=== PATIENT | male | born 1945 | race Caucasian/White ===

== ENCOUNTER 2018-02-11 07:34 | Inpatient (IN) | payer MEDICARE, BC ==
[~2018-02-11] VITALS: Ht 177.8 cm; Wt 132.4 kg
[2018-02-11] VITALS (7 sets, daily range): BP systolic 112–148; BP diastolic 73–87
[2018-02-11] MEDS ORDERED: ATIVAN0.5 MG PO (07:46)
[2018-02-11] MEDS ORDERED: NORVASC5 MG PO (07:47)
[2018-02-11] MEDS ORDERED: LIPITOR10 MG PO (07:47)
[2018-02-11] MEDS ORDERED: GLUCOPHAGE XR750 MG PO (07:48)
[2018-02-11 07:53] LABS: URINE BILIRUBIN NEGATIVE (Negative); URINE BLOOD TRACE (Negative); URINE CLARITY CLEAR; URINE COLOR YELLOW; URINE GLUCOSE-RANDOM NEGATIVE (Negative); URINE KETONES NEGATIVE (Negative); URINE LEUKOCYTES-REFLEX NEGATIVE (Negative); URINE NITRITE-REFLEX NEGATIVE (Negative); URINE PROTEIN NEGATIVE (Negative); URINE SPECIFIC GRAVITY 1.025 (1.005-1.030); URINE UROBILINOGEN 0.2 E.U./dl (0.2-1.0)
[2018-02-11 08:03] LABS: ABSOLUTE EOSINOPHILS 0.1 thou/uL (0.0-0.7); ABSOLUTE LYMPHOCYTES 1.9 thou/uL (0.8-5.3); ABSOLUTE MONOCYTES 0.3 thou/uL (0.0-1.2); ABSOLUTE NEUTROPHILS 2.7 thou/uL (1.6-8.1); BASOPHILS 0.6 %; EOSINOPHILS 1.4 %; HEMATOCRIT 43.1 % (42.0-52.0); HEMOGLOBIN 14.4 gm/dL (14.0-18.0); LYMPHOCYTES 37.3 %; MCH 29.5 pg (26.0-34.0); MCHC 33.4 g/dL (28.0-37.0); MCV 88.4 fL (80.0-100.0); MONOCYTES 6.3 %; MPV 8.6 fl. (7.2-11.1); NUCLEATED RBCS 0 /100WBC; PLATELET COUNT* 172 thou/uL (150-400); POLYS 54.4 %; RBC 4.87 mil/uL (4.50-6.00); RDW-CV 16.2 % (10.5-14.5)
[2018-02-11 08:08] LABS: ANION GAP 7 mmol/L (7-16); BUN 24 mg/dL (7-18); CALCIUM 8.3 mg/dL (8.5-10.1); CHLORIDE 105 mmol/L (98-107); CO2 26 mmol/L (21-32); CREATININE 0.9 mg/dL (0.6-1.3); GLUCOSE 177 mg/dL (70-99); POTASSIUM 3.8 mmol/L (3.5-5.1); SODIUM 138 mmol/L (136-145)
[2018-02-11 08:14] LABS: ALBUMIN 3.7 g/dL (3.4-5.0); ALKALINE PHOSPHATASE 79 U/L (46-116); LIPASE 151 U/L (73-393); MAGNESIUM 1.9 mg/dL (1.8-2.4); SGOT 38 U/L (15-37); SGPT 67 U/L (30-65); TOTAL BILIRUBIN 0.6 mg/dL (<0.1-1.0); TOTAL PROTEIN 7.2 g/dL (6.4-8.2); TROPONIN-I LEVEL <0.06 ng/mL (<0.06)
[2018-02-11 08:16] LABS: APTT 25.6 Seconds (25.0-31.3); PROTIME 10.6 Seconds (9.20-11.50)
--- NOTE | 2018-02-11 10:10 | EKG ---
[place] [address] ELECTROCARDIOGRAM REPORT Name: JAI INGRAM [place] Room: [address] ADM IN M.R.#: [id number] Admission: 02/11/18 Attend Phys: Annette Lucero Discharge: Date of : 49 Report #: [id number] THIS REPORT FOR: //name// [facility] ED Test Date: 2018-02-11 Test Time: 07:43:30 Pat Name: JAI INGRAM Department: Room: [facility] Gender: M Physical Therapist: JOSE ANTONIO : 1945 Requested By: Wyatt Elder Order Number: [id number] MD: Zen Elam Measurements Intervals [place] Rate: 103 P: TN: QRS: -47 QRSD: 116 T: 62 QT: 380 QTc: 498 Interpretive Statements sinus rhythm with ventricular couplets pac Ventricular bigeminy Inferior infarct, old No previous ECG available for comparison Electronically Signed On 02-11-2018 10:10:23 CDT by Zen Elam [email or web address] <ELECTRONICALLY SIGNED> By: Zen Elam MD, [facility] 02/11/18 1010 0743 0743 Zen Elam MD, [facility] /EPI
[2018-02-11 13:10] LABS: CHOLESTEROL 100 mg/dL (<200); HDL CHOLESTEROL 38 mg/dL (>40); LDL CHOLESTEROL 52 mg/dL (<100); SERUM ASSESSMENT Clear; TC:HDL 2.6 Ratio (Not establshd); TRIGLYCERIDE 53 mg/dL (<150); VLDL 11 mg/dL (<40)
--- NOTE | 2018-02-11 16:44 | 2DMMODE ---
[place] [address] 2 D/M-MODE ECHOCARDIOGRAM Name: JAI INGRAM MARGARET Room: [address] IN [facility]#: [id number] Admission: 02/11/18 Attend Phys: Osmani Herrera Discharge: Date of : 49 Date of Service: 02/11/18 1644 Report #: [id number] THIS REPORT FOR: //name// APPROVED REPORT Study performed: 02/11/2018 14:57:42 EXAM: Comprehensive 2D, Doppler, and color-flow Echocardiogram Patient Location: In-Patient Room #: [facility] Status: routine BSA: 2.46 HR: 84 bpm BP: 127/75 mmHg Rhythm: NSR Other Information Study Quality: Good Indications Abnormal ECG Elevated BP 2D Dimensions LVEF(%): 24.22 (>50%) IVSd: 13.92 (7-11mm) LVOT Diam: 22.03 (18-24mm) LVDd: 55.92 mm PWd: 12.02 (7-11mm) Ascending Ao: 33.57 (22-36mm) LVDs: 49.60 (25-40mm) Aortic Root: 40.11 mm Morrow's LVEF: 24.22 % Volumes Left Atrial Volume (Systole) LA ESV Index: 53.00 mL/m2 Aortic Valve AoV Peak Edgardo.: 1.26 m/s AO Peak Gr.: 6.34 mmHg LVOT Max P.81 mmHg AO Mean Gr.: 3.57 mmHg LVOT Mean P.81 mmHg LVOT Max V: 0.98 m/s AO V2 VTI: 24.70 cm LVOT Mean V: 0.62 m/s SARAHI (VTI): 3.16 cm2 LVOT V1 VTI: 20.44 [place] [address] 2 D/M-MODE ECHOCARDIOGRAM Name: JAI INGRAM POTOSI Room: [address] IN .R.#: [id number] Admission: 02/11/18 Attend Phys: Osmani Herrera Discharge: Date of : 49 Date of Service: 02/11/18 1644 Report #: [id number] E/A Ratio: 1.16 MV Decel. Time: 169.90 ms MV E Max Edgardo.: 1.09 m/s MV PHT: 49.27 ms MVA (PHT): 4.47 cm2 TDI E/Lateral E': 10.90 Lateral E' Edgardo.: 0.10 m/s Pulmonary Valve PV Peak Edgardo.: 0.96 m/s PV Peak Gr.: 3.66 mmHg Tricuspid Valve RAP Estimate: 5.00 mmHg TR Peak Gr.: 30.61 mmHg RVSP: 35.00 mmHg PA Pressure: 35.00 mmHg Left Ventricle The left ventricle is normal size. There is global hypokinesis of the left ventricle. Mild concentric left ventricular hypertrophy. Left ventricular systolic function is severely decreased. LVEF is 25-30%. The left ventricular diastolic function is normal. Right Ventricle The right ventricle is normal size. The right ventricular systolic function is normal. Atria Left atrium is severely dilated. The right atrium size is normal. Aortic Valve The aortic valve is normal in structure. Trace aortic regurgitation. There is no aortic valvular stenosis. Mitral Valve The mitral valve is normal in structure. Mild mitral regurgitation. No evidence of mitral valve stenosis. Tricuspid Valve The tricuspid valve is normal in structure. Mild tricuspid regurgitation. Mild pulmonary hypertension. Pulmonic Valve The pulmonary valve is normal in structure. [place] [address] 2 D/M-MODE ECHOCARDIOGRAM Name: JAI INGRAM MARGARET Room: [address] IN [facility]#: [id number] Admission: 02/11/18 Attend Phys: Osmani Herrera Discharge: Date of : 49 Date of Service: 02/11/18 1644 Report #: [id number] valvular regurgitation. Great Vessels The aortic root is normal in size. IVC is normal in size and collapses with >50% inspiration Pericardium There is no pericardial effusion. <Conclusion> Mild concentric left ventricular hypertrophy. LVEF is 25-30%. Left atrium is severely dilated. Mild mitral regurgitation. Mild tricuspid regurgitation. Mild pulmonary hypertension. <ELECTRONICALLY SIGNED> By: Zen Elam MD, FACC 02/11/184 43 43 Zen Elam MD, FACC /INF
[2018-02-12] VITALS (17 sets, daily range): BP systolic 101–153; BP diastolic 56–91
[2018-02-12 10:34] LABS: CALCIUM 8.5 mg/dL (8.5-10.1); CREATININE 0.9 mg/dL (0.6-1.3); MAGNESIUM 2.1 mg/dL (1.8-2.4)
[2018-02-13] VITALS (7 sets, daily range): BP systolic 102–132; BP diastolic 57–90
[2018-02-14] VITALS: BP 97/56
[2018-02-14 04:00] VITALS: BP 118/56
[2018-02-14 12:00] VITALS: BP 107/66
[2018-02-14 16:33] VITALS: BP 106/77
[2018-02-14 20:00] VITALS: BP 121/80
[2018-02-15] VITALS: BP 102/64
[2018-02-15 04:00] VITALS: BP 112/77
[2018-02-15 05:13] LABS: HEMATOCRIT 41.5 % (42.0-52.0); HEMOGLOBIN 13.8 gm/dL (14.0-18.0); MCH 29.5 pg (26.0-34.0); MCHC 33.1 g/dL (28.0-37.0); MCV 88.9 fL (80.0-100.0); MPV 8.5 fl. (7.2-11.1); RBC 4.67 mil/uL (4.50-6.00); WBC 6.4 thou/uL (4.0-11.0)
[2018-02-15 05:43] LABS: ALBUMIN 3.4 g/dL (3.4-5.0); CALCIUM 8.4 mg/dL (8.5-10.1); TOTAL BILIRUBIN 0.7 mg/dL (<0.1-1.0); TOTAL PROTEIN 6.3 g/dL (6.4-8.2)
[2018-02-15 08:07] VITALS: BP 125/78
--- NOTE | 2018-02-15 13:00 | CON ---
[address] [address] CONSULTATION Name: INGRAMJAI MARTIN MARGARET Room: [address] ADM IN M.R.#: [id number] Admission: 02/11/18 Attend Phys: Annette Lucero Discharge: Date of : 49 Report #: [id number] THIS REPORT FOR: //name// CC: Yary Herrera DATE OF SERVICE: 02/11/2018 CARDIOLOGY CONSULTATION HISTORY OF PRESENT ILLNESS: The patient is a 72-year-old single white male who I was asked to see in the hospital today after he was noted to have an episode of a wide complex tachycardia. The patient has no previous history of heart disease. He states he had a stress test years ago. He has never seen a cambering machine operator. He does go for walks every day, but does not exercise on a regular basis. He states he was doing well until yesterday. He had a brief episode of what he felt warm all over. It lasted a few seconds, resolved. Today, he was sitting in a coffee shop when he suddenly felt warm and then slumped in his chair. According to witnesses, he was unresponsive for a brief period of time. He then awakened. He denied any seizure activity, biting his tongue. Denied any chest pain, palpitations. He was taken by ambulance to [place] [place] and admitted. He denies history of exertional chest pain, dyspnea on exertion, previous syncope. He has had no recent vomiting, diarrhea or bleeding. PAST MEDICAL HISTORY: He has had arthroscopy on his knee. He has a history of hypertension, diabetes, hyperlipidemia. MEDICATIONS: Consists of Zocor, metformin, Ativan for anxiety, Norvasc. ALLERGIES: HE HAS INTOLERANCES TO CRESTOR, LIPITOR AND SULFA DRUGS. FAMILY HISTORY: His father of heart attack. 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 No smoking. Rarely drinks alcohol. He does have a few cups of coffee a day. He is from [place], [place]. REVIEW OF SYSTEMS: He has had no history of stroke. He does have sleep apnea, he uses CPAP. He is also overweight, standing 5 feet 8 inches and weighing 250 pounds. He has no history of asthma. No history of peptic ulcer disease, liver disease, kidney disease, cancer or chronic skin condition. PHYSICAL EXAMINATION: GENERAL: Revealed a large, elderly male who appeared in no [place] [address] CONSULTATION Name: JAI INGRAM [place] Room: [address] IN [facility]#: [id number] Admission: 02/11/18 Attend Phys: Annette Lucero Discharge: Date of : 49 Report #: [id number]. VITAL SIGNS: He had a blood pressure of 120/70, pulse 80. He is afebrile. HEENT: He is anicteric. Conjunctivae pink. Mucous membranes moist. NECK: Neck veins nondistended. No carotid bruits heard. NECK: Supple. CHEST: Clear to auscultation. CARDIOVASCULAR: Regular rate and rhythm. No significant murmur. ABDOMEN: Obese, soft, nontender. EXTREMITIES: Had no edema. Dorsalis pedis pulse 3+ bilaterally. SKIN: Warm, dry. NEUROLOGIC: Nonfocal. DIAGNOSTIC DATA: His ECG on admission showed a sinus rhythm, occasional PVCs including ventricular couplets. There was no ST or T-wave change noted on the monitor. He continued to have occasional PVCs including up to 8-beat runs of wide complex tachycardia consistent with nonsustained ventricular tachycardia. LABORATORY DATA: Sodium 138, potassium 3.8, creatinine 0.9, glucose 177. Liver function studies normal. Magnesium 1.9. Troponin 0.06. White blood cell count 5.0, hemoglobin 14.4. Urinalysis, trace blood, negative leukocytes. He had a chest x-ray in the Emergency Room today that showed mild cardiomegaly, otherwise clear lung awan. CT scan of the head without contrast in the Emergency Room showed atrophy, no acute process. IMPRESSION AND RECOMMENDATIONS: 1. Nonsustained ventricular tachycardia. I would recommend cardiac catheterization to rule out ischemia. Recommend echocardiogram to assess for cardiomyopathy. 2. Syncope. Suspect related to ventricular tachycardia. 3. Hypertension. The patient has been on calcium vikas. 4. Diabetes. 5. Hyperlipidemia. The patient is on a statin drug. 6. Sleep apnea. 7. Obesity. <ELECTRONICALLY SIGNED> By: Prosper Reyes MD, FACC 02/15/18 1300 1237 Daimee Elam MD, FACC /nt
[2018-02-15 13:17] VITALS: BP 118/70
--- NOTE | 2018-02-15 16:28 | CARD ---
[address] [address] CARDIAC CATH REPORT Name: JAI INGRAM MARGARET Room: [address] IN M.R.#: [id number] Admission: 02/11/18 Attend Phys: Annette Lucero Discharge: 02/15/18 Date of : 49 Report #: [id number] THIS REPORT FOR: //name// APPROVED REPORT Study performed: 02/12/2018 13:21:12 Patient Details Patient Status: In-Patient Room #: 212 The patient is a 72 year-old male Event Personnel Prosper Reyes Svp Chief Marketing Officer, Isamar Kidd RN Records Associate, Vi Andrews, Juan R Louie (R) Scrub Procedures Performed Art Access - R radial artery , Selective Right and Left Coronary Angiography, Left Heart Catheterization Indication 72-year-old white male with cardiomyopathy and ventricular tachycardia. Procedure Narrative The patient was brought electively to the Cardiac Catheterization Laboratory and was prepped and draped in a sterile manner. The right wrist was infiltrated with 2% Lidocaine subcutaneous anesthesia. A Slender Glidesheath sheath was inserted into the right radial artery. Coronary angiography was performed using coronary diagnostic catheters. The right coronary system was accessed and visualized with a DCR: [place] 4.0 [id number] 6fr catheter. The left coronary system was accessed and visualized with a DCR: [place] 4.0 5fr catheter. The left ventricle was accessed and visualized with a PC: Pig 6fr catheter. Left ventricular/Aortic Valve gradient assessed via catheter pullback. Intraoperative Conscious Sedation Sedation start time: 14:22 Case end Time: 14:43 Fentanyl 50 mcg Versed 1 mg Fluoro Time: 10 minutes Dose: DAP 404352 cGycm2 1826.98 mGy Contrast Type and Amount: Omnipaque [address] [place] [address] CARDIAC CATH REPORT Name: JAI INGRAM [place] Room: [address] IN [facility].#: [id number] Admission: 02/11/18 Attend Phys: Annette Lucero Discharge: 02/15/18 Date of : 49 Report #: [id number] Coronary Angiography The patient's coronary anatomy is right dominant. Diagnostic Cath Left Main Normal. LAD Normal. Diagonal 1 Normal. Diagonal 2 Normal. Circumflex Normal. OM1 30% narrowing distally. Right Coronary Mildly ectatic without significant narrowing. R PDA Normal. RPLV Normal. Left Ventriculography Left Ventriculography was not performed. Hemodynamics The aortic pressure is 115/63 mmHg with a mean of mmHg. The left ventricular pressure is 100/2 mmHg with a mean of mmHg. The left ventricular end diastolic pressure is 10 mmHg. There was no gradient across the aortic valve upon pullback. Conclusion 1. Minimal atherosclerotic plaquing as outlined above. 2. Mildly ectatic right coronary artery. 3. Normal left ventricular end-diastolic pressure. Recommendations 1. Continue current medical management. <ELECTRONICALLY SIGNED> By: Prosper Reyes MD, FACC 02/15/18 162 26 162Micvaleri Reyes MD, FACC /INF
[2018-02-15] MEDS ORDERED: PACERONE 200 M200 M1 PO (16:50)
[2018-02-15] MEDS ORDERED: ASPIRIN325 PO (16:54)
[2018-02-15] MEDS ORDERED: CARVEDILOL3.125 MG PO (16:55)
[2018-02-15] MEDS ORDERED: SPIRONOLACTONE25 M1 PO (16:58)
--- NOTE | 2018-02-20 09:32 | EEG ---
[address] [address] EEG STUDY REPORT Name: JAI INGRAM MARGARET Room: [address] IN M.R.#: [id number] Admission: 02/11/18 Attend Phys: Annette Lucero Discharge: 02/15/18 Date of : 49 Report #: [id number] THIS REPORT FOR: //name// CC: Ahmad Misti Herrera DATE OF SERVICE: 02/15/2018 This patient is being evaluated for syncope. EEG was done by placing the electrodes by standard 10-20 system of electrode placement. Both referential and sequential montages were used for recording. Background activity in this patient's EEG is about 10 Hz and 40 microvolts. The patient went to sleep that is associated with bilaterally symmetrical sleep spindle and vertex sharp waves. Photic stimulation is unremarkable. Throughout the record, no active epileptiform activity was noticed. IMPRESSION: This patient's EEG is within normal limit. Thank you very much for this referral. <ELECTRONICALLY SIGNED> By: Radhames Garcia MD 02/20/18 0932 1800 1808Radhames Garcia MD /nt
== END 2018-02-15 17:45 | disposition home or self-care (01) | DRG 286 ==
LOC: M.ERS 07:34 → M.TBA-ER 08:50 → M.2W 08:50 → M.ERS 09:19 → M.2W 09:28
PROVIDERS: Family Medicine; Internal Medicine; Internal Medicine Cardiovascular Disease; ADMIT Internal Medicine
PROC: B2111ZZ Fluoroscopy of Multiple Coronary Arteries using Low Osmolar Contrast (ICD-10-PCS; principal; 2018-02-15)
PROC: 4A023N7 Measurement of Cardiac Sampling and Pressure, Left Heart, Percutaneous Approach (ICD-10-PCS; principal; 2018-02-15)
DX: I47.2 Ventricular tachycardia (principal); I50.23 Acute on chronic systolic (congestive) heart failure; I42.9 Cardiomyopathy, unspecified; Z68.41 Body mass index [BMI] 40.0-44.9, adult; I11.0 Hypertensive heart disease with heart failure; E11.9 Type 2 diabetes mellitus without complications; E78.5 Hyperlipidemia, unspecified; G47.00 Insomnia, unspecified; G47.33 Obstructive sleep apnea (adult) (pediatric); E66.01 Morbid (severe) obesity due to excess calories; Z88.2 Allergy status to sulfonamides; Z88.8 Allergy status to other drugs, medicaments and biological substances; Z82.49 Family history of ischemic heart disease and other diseases of the circulatory system; Z79.899 Other long term (current) drug therapy

== ENCOUNTER 2019-01-22 09:48 | Emergency (ER) | payer MEDICARE, BC ==
[~2019-01-22] VITALS: Ht 180.3 cm; Wt 129.3 kg
[~2019-01-22 09:48] MED LIST: ASPIRIN325 PO; ATIVAN0.5 MG PO; CARVEDILOL3.125 MG PO; GLUCOPHAGE XR750 MG PO; LIPITOR10 MG PO; NORVASC5 MG PO; PACERONE 200 M200 M1 PO; SPIRONOLACTONE25 M1 PO
[2019-01-22] MEDS ORDERED: LISINOPRIL10 MG PO (09:54)
[2019-01-22 10:22] LABS: ABSOLUTE LYMPHOCYTES 1.7 thou/uL (0.8-5.3); ABSOLUTE MONOCYTES 0.3 thou/uL (0.0-1.2); ABSOLUTE NEUTROPHILS 2.5 thou/uL (1.6-8.1); BASOPHILS 1.1 %; EOSINOPHILS 0.7 %; HEMATOCRIT 40.5 % (42.0-52.0); HEMOGLOBIN 13.8 gm/dL (14.0-18.0); LYMPHOCYTES 37.2 %; MCH 30.9 pg (26.0-34.0); MCV 90.6 fL (80.0-100.0); MONOCYTES 6.6 %; NUCLEATED RBCS 0 /100WBC; PLATELET COUNT* 174 thou/uL (150-400); POLYS 54.4 %; RBC 4.47 mil/uL (4.50-6.00); RDW-CV 16.2 % (10.5-14.5); WBC 4.5 thou/uL (4.0-11.0)
[2019-01-22 10:30] LABS: PROTIME 10.4 Seconds (9.20-11.50)
[2019-01-22 10:31] LABS: ANION GAP 10 mmol/L (7-16); BUN 26 mg/dL (7-18); CALCIUM 8.7 mg/dL (8.5-10.1); CHLORIDE 108 mmol/L (98-107); CO2 23 mmol/L (21-32); CREATININE 0.9 mg/dL (0.6-1.3); GLUCOSE 124 mg/dL (70-99); POTASSIUM 4.1 mmol/L (3.5-5.1); SODIUM 141 mmol/L (136-145)
[2019-01-22 10:42] LABS: ALBUMIN 3.4 g/dL (3.4-5.0); ALKALINE PHOSPHATASE 81 U/L (46-116); NT-PRO BRAIN NAT PEPTIDE 514 pg/mL (<300); SGOT 36 U/L (15-37); SGPT 60 U/L (30-65); TOTAL BILIRUBIN 0.5 mg/dL (<0.1-1.0); TOTAL PROTEIN 6.8 g/dL (6.4-8.2); TROPONIN-I LEVEL <0.06 ng/mL (<0.06)
[2019-01-22 12:29] LABS: TROPONIN-I LEVEL <0.06 ng/mL (<0.06)
[2019-01-22 12:41] VITALS: BP 140/76
--- NOTE | 2019-01-22 20:12 | EKG ---
[place] [address] ELECTROCARDIOGRAM REPORT Name: JAI INGRAMTON [facility] [id number] Admission: 01/22/19 Attend Phys: Discharge: 01/22/19 Date of : 49 Report #: [id number] THIS REPORT FOR: //name// [facility] ED Test Date: 2019-01-22 Test Time: 09:52:02 Pat Name: JAI INGRAM Department: Room: Gender: M Director Of Women'S Services: DIALLO : 1945 Requested By: Stanley Steel Order Number: [id number] MD: Kwabena Alfred Measurements Intervals [place] Rate: 64 P: 18 NV: 255 QRS: -47 QRSD: 124 T: 52 QT: 411 QTc: 424 Interpretive Statements Sinus rhythm Prolonged NV interval Left bundle branch block Baseline wander in lead(s) V1 Compared to ECG 02/11/2018 07:43:30 First degree AV block now present Left bundle-branch block now present Atrial premature complex(es) no longer present Ventricular premature complex(es) no longer present Myocardial infarct finding no longer present cannot exclude old inferior VT Electronically Signed On 01-22-2019 20:12:20 CDT by Kwabena Alfred [email or web address] <ELECTRONICALLY SIGNED> By: Rosangela Alfred MD, [facility] 01/22/192011 1 1 Rosangela Alfred MD, [facility] /EPI
== END 2019-01-22 13:00 | disposition home or self-care (01) ==
LOC: M.ERS 09:48
PROVIDERS: Emergency Medicine Emergency Medical Services
DX: I49.3 Ventricular premature depolarization (principal); I10 Essential (primary) hypertension; E11.9 Type 2 diabetes mellitus without complications; G47.00 Insomnia, unspecified; Z88.2 Allergy status to sulfonamides; Z88.8 Allergy status to other drugs, medicaments and biological substances

== ENCOUNTER → 2019-09-09 | Outpatient (CLI) | payer MEDICARE, BC ==
[~2019-09-09] MED LIST changes: +LISINOPRIL10 MG PO
== END ==
LOC: M.RAD 09:28
DX: I42.0 Dilated cardiomyopathy (principal); I51.7 Cardiomegaly

== ENCOUNTER 2019-10-07 18:36 | Inpatient (IN) | payer MEDICARE, BC ==
[~2019-10-07] VITALS: Ht 177.8 cm; Wt 149.6 kg
[~2019-10-07 18:36] MED LIST changes: -ATIVAN0.5 MG PO; +Ativan 0.5 MG
[2019-10-07 18:41] VITALS: BP 140/65
--- NOTE | 2019-10-07 18:55 | NUR ---
FULL NURSING REPORT GIVEN TO OPNCOMING SHIFT, REBEKAH RN WITH VERBAL UNDERSTANDING
[2019-10-07 19:00] LABS: ABSOLUTE BASOPHILS 0.1 thou/uL (0.0-0.2); ABSOLUTE LYMPHOCYTES 1.3 thou/uL (0.8-5.3); ABSOLUTE MONOCYTES 0.5 thou/uL (0.0-1.2); ABSOLUTE NEUTROPHILS 5.9 thou/uL (1.6-8.1); BASOPHILS 0.8 %; EOSINOPHILS 0.3 %; HEMATOCRIT 39.2 % (42.0-52.0); HEMOGLOBIN 13.7 gm/dL (14.0-18.0); LYMPHOCYTES 16.2 %; MCH 31.1 pg (26.0-34.0); MCHC 34.9 g/dL (28.0-37.0); MCV 89.1 fL (80.0-100.0); MONOCYTES 6.8 %; NUCLEATED RBCS 0 /100WBC; PLATELET COUNT* 189 thou/uL (150-400); POLYS 75.9 %; WBC 7.8 thou/uL (4.0-11.0)
[2019-10-07 19:22] LABS: CALCIUM 8.9 mg/dL (8.5-10.1); CREATININE 1.3 mg/dL (0.6-1.3); POTASSIUM 3.7 mmol/L (3.5-5.1)
[2019-10-07 19:33] LABS: ALBUMIN 3.2 g/dL (3.4-5.0); TOTAL PROTEIN 7.6 g/dL (6.4-8.2)
[2019-10-07 20:21] LABS: URINE BILIRUBIN NEGATIVE (Negative); URINE BLOOD 1+ (Negative); URINE CLARITY CLEAR; URINE COLOR YELLOW; URINE GLUCOSE-RANDOM NEGATIVE (Negative); URINE KETONES TRACE (Negative); URINE LEUKOCYTES-REFLEX NEGATIVE (Negative); URINE NITRITE-REFLEX NEGATIVE (Negative); URINE PROTEIN TRACE (Negative); URINE SPECIFIC GRAVITY >= 1.030 (1.005-1.030)
[2019-10-07 20:31] LABS: MUCUS 0-3 Light strn/LPF (None Seen); SQUAMOUS 0-3 Few /LPF (0-3)
[2019-10-07 20:32] LABS: BACTERIA-REFLEX 1-9 Few /HPF (None Seen); CRYSTALS None Seen /LPF (None Seen); URINE RBC 0-2 Rare /HPF (0-2); URINE WBC-REFLEX 0-5 Rare /HPF (0-5)
[2019-10-07 20:33] LABS: HYALINE CASTS 0-3 Few /LPF (None Seen)
[2019-10-07 21:45] VITALS: BP 128/66
[2019-10-07 22:30] VITALS: BP 120/77
[2019-10-07 22:52] LABS: PLATELET ESTIMATE ADEQUATE
[2019-10-07 22:53] LABS: ANISOCYTOSIS Occasional
[2019-10-07 22:54] LABS: POLYCHROMASIA Occasional
--- NOTE | 2019-10-08 05:34 | NUR ---
PT ARRIVED FROM THE ER AT 2215. A&O, ON RA. FEBRILE. IV ABX, FLUIDS GIVEN ORDERED. PT UP AD STEFFANIE. NPO FOR POSSIBLE SURGERY. PT DENIED PAIN. SLEEPING/RESTING THROUGH THE NIGHT. HOURLY ROUNDINGS COMPLETED. WILL CONTINUE TO MONITOR.
[2019-10-08 09:51] VITALS: BP 124/57
--- NOTE | 2019-10-08 10:18 | EKG ---
[place] [address] ELECTROCARDIOGRAM REPORT Name: JUAN JOSEJAI MARGARET Room: [address] ADM IN M.R.#: [id number] Admission: 10/07/19 Attend Phys: Choco rodriguez Sa Discharge: Date of : 49 Date of Service: 10/07/19 1857 Report #: [id number] THIS REPORT FOR: //name// [facility] ED Test Date: 2019-10-07 Test Time: 18:57:44 Pat Name: JAI INGRAM Department: Room: [facility] Gender: M Risk Assessment Consultant: [place] : 1945 Requested By: Maggie Allen Order Number: [id number] MD: Zen Elam Measurements Intervals [place] Rate: 89 P: -66 TX: 212 QRS: -49 QRSD: 126 T: 61 QT: 390 QTc: 475 Interpretive Statements Sinus or ectopic atrial rhythm Atrial premature complexes Borderline prolonged TX interval IVCD, consider atypical RBBB Probable inferior infarct, old Consider anterior infarct old Lateral leads are also involved Compared to ECG 01/22/2019 09:52:02 Atrial premature complex(es) now present Myocardial infarct finding now present Electronically Signed On 10-08-2019 10:16:14 CDT by Zen Elam [email or web address] <ELECTRONICALLY SIGNED> By: Zen Elam MD, [facility] 10/08/19 1016 1857 1857 Zen Elam MD, [facility] /EPI
--- NOTE | 2019-10-08 10:18 | EKG ---
[place] [address] ELECTROCARDIOGRAM REPORT Name: JUAN JOSEJAI ROBLES Room: [address] ADM IN M.R.#: [id number] Admission: 10/07/19 Attend Phys: Choco rodriguez Sa Discharge: Date of : 49 Date of Service: 10/07/19 190 Report #: [id number] THIS REPORT FOR: //name// [facility] ED Test Date: 2019-10-07 Test Time: 19:09:55 Pat Name: JAI INGRAM Department: Room: [address] Gender: M Investigator Utility Bill Complaints: [place] : 1945 Requested By: Maggie Allen Order Number: [id number] Jesús MD: Zen Elam Measurements Intervals [place] Rate: 86 P: -3 DC: 247 QRS: -45 QRSD: 135 T: 63 QT: 386 QTc: 462 Interpretive Statements Sinus rhythm Atrial premature complexes Prolonged DC interval IVCD, consider atypical RBBB Inferior infarct, old Anterior infarct, old Lateral leads are also involved Electronically Signed On 10-08-2019 10:16:53 CDT by Zen Elam [email or web address] <ELECTRONICALLY SIGNED> By: Zen Elam MD, FAC 10/08/19 1016 1909 1909 Zen Elam MD, [facility] /EPI
[2019-10-08 12:59] VITALS: BP 124/57
--- NOTE | 2019-10-08 17:02 | NUR ---
ATTEMPTED TO CALL PT.IN ROOM. NO ANSWER. SPOKE TEJA TERAN . SHE SAID PT.WAS DOWN FOR SURGERY. HE IS INDEPENDENT. LIVES ALONE. HAD BEEN UP AD STEFFANIE IN ROOM. SHOULD HAVE NO DISCHARGE NEEDS.
--- NOTE | 2019-10-08 18:26 | NUR ---
PT A&Ox4. VITALS STABLE. IV PATENT. NPO FOR SURGERY. CURRENTLY STILL IN OR. WILL UPDATE UPON ARRIVAL TO FLOOR.
[2019-10-09 04:04] VITALS: BP 113/65
[2019-10-09 04:59] LABS: HEMATOCRIT 35.4 % (42.0-52.0); HEMOGLOBIN 12.1 gm/dL (14.0-18.0); MCH 30.6 pg (26.0-34.0); MCHC 34.2 g/dL (28.0-37.0); MCV 89.5 fL (80.0-100.0); MPV 7.6 fl. (7.2-11.1); RBC 3.95 mil/uL (4.50-6.00); RDW-CV 15.8 % (10.5-14.5); WBC 7.8 thou/uL (4.0-11.0)
[2019-10-09 05:29] LABS: ALBUMIN 2.3 g/dL (3.4-5.0); CALCIUM 7.9 mg/dL (8.5-10.1); MAGNESIUM 2.1 mg/dL (1.8-2.4); TOTAL PROTEIN 6.2 g/dL (6.4-8.2)
--- NOTE | 2019-10-09 06:18 | NUR ---
PT ARRIVED TO UNIT FROM PACU AT 2250. REPORT GIVEN BY CHEMICAL MIXER. PT AAOX4, SINUS RHYTHM WITH 1D ON MARKETING ASSISTANT RETAIL DIVISION. CONTINUOUS PULSE OX IN PLACE. REPOSITIONED NG TUBE AND SATISFACTORY PLACEMENT VERIFIED BY ABD XRAY. NG HOOKED UP TO LIS. PRN PAIN MEDICATION ADMINISTERED THIS SHIFT, SEE EMAR FOR DOCUMENTATION. PROVENA AND SOTO DRAINS IN PLACE. MINIMAL DRAININGE FROM SOTO DRAINS. NEGATIVE SEPSIS SCREENING. CALL LIGHT WITHIN REACH.
[2019-10-09 07:43] VITALS: BP 133/73
[2019-10-09 12:00] VITALS: BP 145/87
[2019-10-09 16:00] VITALS: BP 137/78
--- NOTE | 2019-10-09 18:49 | NUR ---
RECEIVED REPORT FROM EVERT LEZAMA. ASSUMED CARE OF PT AROUND 0730. PT A&OX4. INSURANCE PROCESSING CLERK IN PLACE TRACING CHARTED. AM ASSESSMENT AND VITALS COMPLETED CHARTED. EDMAR WOUND VAC IN PLACE AND FUNCTIONING PROPERLY. SOTO DRAINS X2 IN PLACE WITH MINIMAL DRAINAGE. NG TUBE IN PLACE TO LIS. THOMSON DC'D THIS SHIFT. PT ABLE TO GET UP TO BEDSIDE CHAIR THIS SHIFT AND AMBULATE IN THE HALLWAY ONE TIME WITH NURSING ASSIST. O2 PER NC TITRATED DOWN TO 1L. PAIN CONTROLLED THIS SHIFT VIA DIRECT CARE STAFFER PUMP - PUMP TO BE CLEANED WITH ONCOMING RN AT BEDSIDE HANDOFF. PT TOLERATING ICE CHIPS THIS SHIFT, BELCHING A FEW TIMES. NO GAS PASSED THIS SHIFT. PT CURRENTLY RESTING IN BED. CALL LIGHT IS WITHIN REACH. HOURLY ROUNDING PERFORMED. FALL PRECAUTIONS IN PLACE.
[2019-10-09 20:00] VITALS: BP 134/77
[2019-10-10 00:09] VITALS: BP 138/67
[2019-10-10 04:34] VITALS: BP 129/71
[2019-10-10 05:29] LABS: HEMATOCRIT 32.2 % (42.0-52.0); MCH 30.4 pg (26.0-34.0); MCHC 34.1 g/dL (28.0-37.0); MPV 7.5 fl. (7.2-11.1); RBC 3.62 mil/uL (4.50-6.00); RDW-CV 16.1 % (10.5-14.5); WBC 6.2 thou/uL (4.0-11.0)
[2019-10-10 05:50] LABS: ALBUMIN 2.2 g/dL (3.4-5.0); POTASSIUM 3.8 mmol/L (3.5-5.1); TOTAL BILIRUBIN 0.8 mg/dL (<0.1-1.0); TOTAL PROTEIN 5.9 g/dL (6.4-8.2)
--- NOTE | 2019-10-10 06:39 | NUR ---
ASSUMED PT CARE AT 1915. NURSING ASSESSMENT COMPLETED AT START OF SHIFT. SR 1D PVCS ON LINE MAINTAINER SECTION. PT C/O NGT BEING UNCOMFORTABLE AND REQUESTED IT TO BE TAKEN OUT. DR. LOZOYA PAGED, OK TO TAKE OUT. PT COMFORTABLE THIS SHIFT. COUNTRY PRINTER BUTTON WITHIN REACH. NO N/V THIS SHIFT. TOLERATED ICE CHIPS. HOURLY ROUNDING COMPLETED. CALL LIGHT WITHIN REACH.
--- NOTE | 2019-10-10 07:10 | NUR ---
CHANGE OF SHIFT, BEDSIDE REPORT GIVEN PATIENT SEEN AT BEDSIDE, IN RECLINER RESTING ASSUMED PATIENT CARE
[2019-10-10] MEDS ORDERED: TAMSULOSIN HCL0.4 MG PO (07:30)
[2019-10-10 08:00] VITALS: BP 118/60
[2019-10-10 14:00] VITALS: BP 139/95
[2019-10-10 16:00] VITALS: BP 137/78
--- NOTE | 2019-10-10 17:29 | OP ---
[address] [address] OPERATIVE REPORT Name: JAI INGRAM Room: [address] IN M.R.#: [id number] Admission: 10/07/19 Attend Phys: Choco Hartman Discharge: Date of : 49 Report #: [id number] THIS REPORT FOR: //name// cc: Yary Chappell Ahmad W. DO ~ THIS REPORT FOR: //name// CC: Yary Coppola DATE OF SERVICE: 10/08/2019 SURGEON: Ramírez العراقي DO ASSISTANTS: 1. Estefani Quesada DO 2. Aleksey Calderon DO 3. Dr. Cuba Pelletier PREOPERATIVE DIAGNOSIS: Acute cholecystitis. POSTOPERATIVE DIAGNOSIS: Gangrenous cholecystitis. PROCEDURE: Laparoscopic, converted to open cholecystectomy. INDICATIONS: The patient is a 74-year-old gentleman who presented to the Emergency Department with abdominal pain. History of present illness, physical exam, laboratory and imaging findings were consistent with acute cholecystitis. The risks and benefits of surgery were discussed in detail. Risks of bleeding, infection, damage to nearby structures including the bowel and common bile duct were explained in detail and the patient agreed to proceed with the operation. DESCRIPTION OF PROCEDURE: The patient was taken to the operating theater and placed in the supine position. Bilateral SCDs were placed and preoperative antibiotics were given. General anesthesia was induced without complication. The patient's abdomen was prepped and draped in the standard sterile fashion. A timeout was performed and all were in agreement. A supraumbilical incision was made using an 11 blade scalpel. Dissection was carried down to the midline fascia using S retractors. The midline fascia was then scored using electrocautery and elevated into the operative field using Baltazar clamps. The peritoneum was entered bluntly using a hemostat. Next, 2 stay sutures of 0 Vicryl were used on either side of the fascia and a 5 mm Melani trocar was placed. The abdomen was insufflated to 15 mmHg [place] [id number] OPERATIVE REPORT Name: JAI INGRAM MARGARET Room: [address] IN .R.#: [id number] Admission: 10/07/19 Attend Phys: Choco Hartman Discharge: Date of : 49 Report #: [id number] camera was introduced and no damage to intraabdominal structures was seen on inspection. Next, a subxiphoid 5 mm port was placed under direct visualization and two more 5 mm ports were placed in the right upper quadrant under direct visualization. The patient was then placed in the steep reverse Trendelenburg and left side down position. The right upper quadrant appeared to have significant inflammation. The omentum, stomach, and duodenum were grossly adhered to the gallbladder. The adhesions were bluntly swept off of the gallbladder revealing an edematous, injected and friable gallbladder with pericholecystic fluid. The gallbladder appeared to be very intrahepatic as well. The gallbladder was grasped with a nontraumatic grasper and this was unsuccessful due to the gallbladder distension. Next, a large needle was placed through the most lateral port and the gallbladder was decompressed using an aspiration method. Clear, bile tinged fluid was aspirated. Next, the gallbladder fundus was elevated to the anteriorly and superiorly a suction optical effects layout person device was used to continue to sweep down adhesions lower on the gallbladder. The gallbladder was extremely friable and there was a large amount of inflammation lateral to the lizet hepatis. After bluntly sweeping down the adhesions, we determined that we could not safely perform a laparoscopic cholecystectomy. The decision was made to open and the trocars were removed and the abdomen was desufflated. A 15 cm right subcostal incision was made using a 10 blade scalpel. Dissection was carried down using electrocautery to the fascia. The fascia was incised using electrocautery. The muscle was then incised using electrocautery and the posterior fascia was also opened using electrocautery. The peritoneum was grasped between 2 hemostats and elevated. This was scored using electrocautery and a finger was placed underneath the peritoneum and this was opened the full length of the incision. The stomach and transverse colon were packed away from the operative field using lap pads and the fundus of the gallbladder was grasped with a bruna. The gallbladder dome was taken off of the liver. There were no distinct planes and the decision was made to leave partial back wall of the gallbladder on the gallbladder fossa. The bruna was used to retract the gallbladder medially and the gallbladder was dissected off of the gallbladder fossa laterally. Next, we encountered Dennys's pouch. A Kittner was used to dissect from lateral to medial around Dennys's pouch. The cystic duct and cystic artery were not identified. We then moved back to the fundus of the gallbladder and took down the medial aspect of the gallbladder from the gallbladder fossa using electrocautery and blunt dissection. At this point, the gallbladder was opened and several large stones were removed. I could not appreciate the cystic duct origin and called my senior geotechnical engineer, Estefani Quesada, to the operating room to assist. When she arrived, we continued the dissection from lateral to medial and we were able to dissect out Calot's triangle using a right angle and blunt dissection. A tubular structure was circumferentially dissected going directly into the gallbladder using a right angle. Two 2-0 silks were passed underneath this tubular structure and were tied. The tubular structure was [facility] [address] [place] [address] OPERATIVE REPORT Name: INGRAMJAI MARTIN MARGARET Room: [address] IN M.R.#: [id number] Admission: 10/07/19 Attend Phys: Choco Hartman Discharge: Date of : 49 Report #: [id number] cut on the gallbladder side of the sutures and the gallbladder was removed from the operative field. There was a small artery that was ligated using electrocautery and retracted into the gallbladder fossa. We did not find this artery and no further bleeding was observed. We irrigated the right upper quadrant and suctioned it dry multiple times. The gallbladder fossa was cauterized a couple points of slightly oozing. Next, Surgiflo was placed into the gallbladder fossa. There was no further bleeding or bile appreciated in the right upper quadrant. Next, two 19-Niuean Tony SOTO drains were placed into the right upper quadrant and exited one of the port holes and one lateral to the incision. These were sutured into place using 2-0 nylon. Next, after inspection again of the right upper quadrant, which appeared to be hemostatic, we closed the wounds. The peritoneum was closed using 3-0 Vicryl. The posterior fascia was closed using 2-0 PDS and the anterior fascia was closed using 2 looped 1 PDS sutures that were tied in the middle. The subcutaneous tissue was closed using 3-0 Vicryl and thias were used to close the skin over top as well as the previous port sites. The incision was covered using a CAL vacuum assist device and the laparoscopic port incisions were closed using gauze and Tegaderm. Of note, we did close the supraumbilical port site fascia using 0 Vicryl in a [id number] fashion. This concluded the procedure. All sponge, needle and instrument counts were correct x 2. FINDINGS: Gangrenous gallbladder, multiple gallstones, significant adhesions in the right upper quadrant. ESTIMATED BLOOD LOSS: 200 mL COMPLICATIONS: None. ANESTHESIA: General endotracheal anesthesia. DRAINS: Two 19-Niuean SOTO drains in the right upper quadrant. DISPOSITION: The patient was extubated in the operating theater and taken to the PACU in stable condition. <ELECTRONICALLY SIGNED> By: Ramírez العراقي DO 10/10/19 1729 1805 [id number] العراقي DO /shanti
[2019-10-10 20:00] VITALS: BP 134/59
[2019-10-11] VITALS: BP 113/60
[2019-10-11 04:00] VITALS: BP 129/49
[2019-10-11 05:44] LABS: HEMATOCRIT 30.9 % (42.0-52.0); HEMOGLOBIN 10.6 gm/dL (14.0-18.0); MCHC 34.3 g/dL (28.0-37.0); MCV 90.3 fL (80.0-100.0); MPV 7.6 fl. (7.2-11.1); RBC 3.42 mil/uL (4.50-6.00); RDW-CV 16.2 % (10.5-14.5); WBC 3.9 thou/uL (4.0-11.0)
[2019-10-11 05:50] LABS: CALCIUM 8.2 mg/dL (8.5-10.1); POTASSIUM 3.2 mmol/L (3.5-5.1)
--- NOTE | 2019-10-11 07:15 | NUR ---
CHANGE OF SHIFT REPORT GIVEN PATIENT SEEN AT BEDSIDE, IN RECLINER ASSUMED PATIENT CARE
[2019-10-11 08:00] VITALS: BP 126/56
[2019-10-11 12:12] VITALS: BP 105/44
--- NOTE | 2019-10-11 15:15 | NUR ---
Per , anticipate that Pt will be medically stable to dc home tomorrow. Following.
[2019-10-11 16:53] VITALS: BP 112/68
[2019-10-11 20:00] VITALS: BP 139/53
[2019-10-12] VITALS: BP 124/59
[2019-10-12 04:00] VITALS: BP 118/60
[2019-10-12 04:14] LABS: HEMATOCRIT 29.6 % (42.0-52.0); HEMOGLOBIN 10.2 gm/dL (14.0-18.0); MCH 30.7 pg (26.0-34.0); MCHC 34.5 g/dL (28.0-37.0); MCV 89.1 fL (80.0-100.0); MPV 7.1 fl. (7.2-11.1); RBC 3.32 mil/uL (4.50-6.00); RDW-CV 15.8 % (10.5-14.5); WBC 2.9 thou/uL (4.0-11.0)
[2019-10-12 04:55] LABS: CREATININE 1.1 mg/dL (0.6-1.3); MAGNESIUM 1.9 mg/dL (1.8-2.4); POTASSIUM 3.4 mmol/L (3.5-5.1)
[2019-10-12 10:47] LABS: CHOLESTEROL 94 mg/dL (<200); HDL CHOLESTEROL 21 mg/dL (>40); LDL CHOLESTEROL 59 mg/dL (<100); SERUM ASSESSMENT Clear; TC:HDL 4.5 Ratio (Not establshd); TRIGLYCERIDE 73 mg/dL (<150); VLDL 15 mg/dL (<40)
[2019-10-12 10:59] LABS: ALBUMIN 2.1 g/dL (3.4-5.0); DIRECT BILIRUBIN 0.3 mg/dL (<0.1-0.3); TOTAL BILIRUBIN 0.6 mg/dL (<0.1-1.0)
[2019-10-12 11:52] VITALS: BP 116/69
[2019-10-12] MEDS ORDERED: HYDROCODON-ACE1 EAC7 PO (12:28)
[2019-10-12] MEDS ORDERED: AUGMENTIN 875-1 EACH PO (14:24)
[2019-10-12 14:47] VITALS: BP 116/69
--- NOTE | 2019-10-13 15:08 | PATH ---
[address] [address] PATHOLOGY RPT PROCEDURE Name: INGRAMJAI MARGARET Room: [address] IN M.R.#: [id number] Admission: 10/07/19 Date of : 49 Discharge: 10/12/19 Report #: [id number] Path Case #: [id number] [facility] Accession Number: [id number] . 01 Material submitted: . gallbladder - GALLBLADDER . 01 Clinical history: . Pre-op diagnosis: Cholecystitis Post-op diagnosis: Cholelithiasis; acute necrotic cholecystitis; hydrox gallbladder . 02 Diagnosis: Gallbladder: - Chronic and acute gangrenous cholecystitis and cholelithiasis. . (SUKHJINDER:mm; 10/13/2019) [facility] 10/13/2019 1229 Local . 02 Electronically signed: . Xander Simmons MD, Pathologist NPI- [id number] . 01 Gross description: . The specimen is received in formalin, labeled "griffin Torres". Received is a previously opened gallbladder measuring 10.1 x 4.2 x 3.5 cm in greatest dimensions displaying a dusky islas-brown and shaggy/torn serosal surface. Opening the specimen reveals a smooth to shaggy, necrotic-appearing islas-brown mucosa with a gallbladder wall thickness of 0.1 cm. The lumen of the gallbladder is filled with light brown friable to shaggy material. Calculi are present displaying a light brown and smooth appearance, and no masses or lesions are noted grossly. Shot Core Drill Operator Helper sections, to include the proximal margin, are submitted in cassettes A1 and A2. (CAA; 10/12/2019) QAC/QAC 10/13/2019 1227 Local . 02 Pathologist provided ICD-10: K80.12 . 02 CPT . 514700 Specimen Comment: A courtesy copy of this report has been sent to [phone] Specimen Comment: [id number] Specimen Comment: Report sent to DR ST / DR GARSIA Performed at: [address] [place] [address] PATHOLOGY RPT PROCEDURE Name: JAI INGRAM Room: [address] IN M.R.#: [id number] Admission: 10/07/19 Date of : 49 Discharge: 10/12/19 Report #: [id number] Path Case #: [id number] [address] [facility] [address], [place] [id number] MD Vijay Macias MD Phone: [phone] Performed at: [address] [place] [id number] MD Xander Simmons MD Phone: [phone]
== END 2019-10-12 16:05 | disposition home or self-care (01) | DRG 415 ==
LOC: M.ERS 18:36 → M.TBA-ER 21:03 → M.ORTHSURG 21:03 → M.2W 10-08 23:14
PROVIDERS: Nurse Practitioner Family; Surgery; ADMIT Family Medicine
DX: K81.0 Acute cholecystitis (principal); Z68.42 Body mass index [BMI] 45.0-49.9, adult; K82.1 Hydrops of gallbladder; K82.A1 Gangrene of gallbladder in cholecystitis; E66.01 Morbid (severe) obesity due to excess calories; E78.5 Hyperlipidemia, unspecified; I10 Essential (primary) hypertension; F41.9 Anxiety disorder, unspecified; I25.10 Atherosclerotic heart disease of native coronary artery without angina pectoris; N20.0 Calculus of kidney; G47.00 Insomnia, unspecified; E11.9 Type 2 diabetes mellitus without complications; Z79.84 Long term (current) use of oral hypoglycemic drugs; Z79.899 Other long term (current) drug therapy; Z79.82 Long term (current) use of aspirin; Z88.2 Allergy status to sulfonamides; Z88.8 Allergy status to other drugs, medicaments and biological substances

== ENCOUNTER → 2020-03-10 | Outpatient (CLI) | payer MEDICARE, BC ==
[~2020-03-10] MED LIST changes: +AUGMENTIN 875-1 EACH PO; +HYDROCODON-ACE1 EAC7 PO; +TAMSULOSIN HCL0.4 MG PO
[2020-03-10 11:16] LABS: ALBUMIN 3.9 g/dL (3.4-5.0); CALCIUM 9.2 mg/dL (8.5-10.1); CREATININE 1.1 mg/dL (0.6-1.3); POTASSIUM 4.6 mmol/L (3.5-5.1); TOTAL BILIRUBIN 0.9 mg/dL (<0.1-1.0); TOTAL PROTEIN 7.6 g/dL (6.4-8.2)
== END ==
LOC: M.LAB 10:36
PROVIDERS: ATTEND Registered Nurse
DX: I42.0 Dilated cardiomyopathy (principal); I10 Essential (primary) hypertension

== ENCOUNTER → 2020-12-26 | Outpatient (CLI) | payer MEDICARE, BC ==
[2020-12-26 09:41] LABS: ALBUMIN 3.9 g/dL (3.4-5.0); CALCIUM 8.7 mg/dL (8.5-10.1); CREATININE 1.1 mg/dL (0.6-1.3); DIRECT BILIRUBIN 0.2 mg/dL (<0.1-0.3); POTASSIUM 4.3 mmol/L (3.5-5.1); TOTAL BILIRUBIN 0.7 mg/dL (<0.1-1.0); TOTAL PROTEIN 7.3 g/dL (6.4-8.2)
== END ==
LOC: M.LAB 08:58
PROVIDERS: ATTEND Nurse Practitioner
DX: I42.0 Dilated cardiomyopathy (principal); I51.7 Cardiomegaly; Z79.899 Other long term (current) drug therapy

== ENCOUNTER → 2021-01-05 | Outpatient (CLI) | payer MEDICARE, BC ==
[2021-01-05 10:01] LABS: ABSOLUTE LYMPHOCYTES 1.8 thou/uL (0.8-5.3); ABSOLUTE MONOCYTES 0.3 thou/uL (0.0-1.2); EOSINOPHILS 0.6 %; HEMATOCRIT 41.3 % (42.0-52.0); HEMOGLOBIN 13.8 gm/dL (14.0-18.0); LYMPHOCYTES 43.6 %; MCH 29.5 pg (26.0-34.0); MCHC 33.4 g/dL (28.0-37.0); MCV 88.2 fL (80.0-100.0); MONOCYTES 7.4 %; MPV 7.5 fl. (7.2-11.1); NUCLEATED RBCS 0 /100WBC; PLATELET COUNT* 179 thou/uL (150-400); POLYS 47.4 %; RBC 4.68 mil/uL (4.50-6.00); RDW-CV 16.7 % (10.5-14.5); WBC 4.2 thou/uL (4.0-11.0)
[2021-01-05 10:09] LABS: ALBUMIN 3.9 g/dL (3.4-5.0); ALKALINE PHOSPHATASE 98 U/L (46-116); ANION GAP 11 mmol/L (7-16); BUN 26 mg/dL (7-18); CALCIUM 8.8 mg/dL (8.5-10.1); CHLORIDE 105 mmol/L (98-107); CHOLESTEROL 109 mg/dL (<200); CO2 25 mmol/L (21-32); CREATININE 1.1 mg/dL (0.6-1.3); DIRECT BILIRUBIN 0.2 mg/dL (<0.1-0.3); GLUCOSE 125 mg/dL (70-99); HDL CHOLESTEROL 40 mg/dL (>40); LDL CHOLESTEROL 57 mg/dL (<100); POTASSIUM 4.4 mmol/L (3.5-5.1); SGOT 58 U/L (15-37); SGPT 99 U/L (30-65); SODIUM 141 mmol/L (136-145); TC:HDL 2.7 Ratio (Not establshd); TOTAL BILIRUBIN 0.7 mg/dL (<0.1-1.0); TOTAL PROTEIN 7.1 g/dL (6.4-8.2); TRIGLYCERIDE 63 mg/dL (<150); VLDL 13 mg/dL (<40)
[2021-01-05 10:11] LABS: SERUM ASSESSMENT Clear
[2021-01-06 02:06] LABS: GLYCOHEMOGLOBIN (HGB A1C) 6.3 % (4.8-5.6)
== END ==
LOC: M.LAB 09:17
PROVIDERS: ATTEND Internal Medicine Cardiovascular Disease
DX: I42.0 Dilated cardiomyopathy (principal); Z79.899 Other long term (current) drug therapy